=== PATIENT | female | born 1975 | race Hispanic/Latino ===

== ENCOUNTER 2018-08-13 05:35 | Emergency (ER) | payer OTHER ==
[2018-08-13 05:52] VITALS: BMI 23.0
[2018-08-13] MEDS ORDERED: Sodium Chloride 0.9% 1,000 ML IV STA (06:00)
--- NOTE | 2018-08-13 06:14 | ED PDOC ---
HPI: Abdomen Time Seen by Provider: 08/13/18 05:40 Chief Complaint (Nursing): Abdominal Pain Chief Complaint (Provider): Abdominal Pain History Per: Patient History/Exam Limitations: no limitations Onset/Duration Of Symptoms: Days (last night ) Current Symptoms Are (Timing): Still Present Location Of Pain/Discomfort: Other (generalized) Associated Symptoms: Nausea, Vomiting, Diarrhea. denies: Fever Additional Complaint(s): 42 year old female no significant past medical history presents to the ED with generalized abdominal pain associated nausea, vomiting and diarrhea since last night. Patient reports today is the first day of her period. She is also pale and weak, but denies fever or any other complaints. Patient did not eat anything out of the ordinary. PMD: Dr. Alexander Past Medical History Reviewed: Historical Data, Nursing Documentation, Vital Signs Vital Signs: Last Vital Signs Temp 97.5 F L 08/13/18 05:53 Pulse 66 08/13/18 05:53 Resp 18 08/13/18 05:53 BP 139/70 08/13/18 05:53 Pulse Ox 100 08/13/18 05:53 - Medical History PMH: No Chronic Diseases - Family History Family History: States: Unknown Family Hx - Home Medications Home Medications: Ambulatory Orders Medication Instructions Recorded Escitalopram [Lexapro] 15 mg PO DAILY 08/23/15 Oseltamivir Phosphate [Tamiflu] 75 mg PO BID #10 capsule 08/23/15 - Allergies Allergies/Adverse Reactions: Allergies Allergy/AdvReac Type Severity Reaction Status Date / Time No Known Allergies Allergy Verified 08/13/18 05:52 Review of Systems ROS Statement: Except As Marked, All Systems Reviewed And Found Negative Constitutional: Positive for: Weakness. Negative for: Fever Gastrointestinal: Positive for: Nausea, Vomiting, Abdominal Pain, Diarrhea Skin: Positive for: Other (pale) Physical Exam - Reviewed Nursing Documentation Reviewed: Yes Vital Signs Reviewed: Yes - Physical Exam Appears: Positive for: Non-toxic, No Acute Distress Head Exam: Positive for: ATRAUMATIC, NORMOCEPHALIC Skin: Positive for: Pallor Eye Exam: Positive for: Normal appearance, EOMI, PERRL Neck: Positive for: Normal Cardiovascular/Chest: Positive for: Regular Rate, Rhythm. Negative for: Murmur Respiratory: Positive for: Normal Breath Sounds. Negative for: Respiratory Dist ress Gastrointestinal/Abdominal: Positive for: Normal Exam, Soft. Negative for: Tenderness Extremity: Positive for: Normal ROM (upper and lower). Negative for: Pedal Edema, Deformity Neurological/Psych: Positive for: Awake, Alert, Oriented (x3) - Laboratory Results Result Diagrams: 08/13/18 06:17 08/13/18 06:17 - ECG O2 Sat by Pulse Oximetry: 100 (RA) Pulse Ox Interpretation: Normal Medical Decision Making Medical Decision Making: Time: 0600 Plan: --CMP --Lipase --CBC --IV fluids --Pepcid 20 mg IVP --Zofran 4 mg IV Time: 0700 --Patient signed out to Dr. Fuentes by this provider, pending labs. Scribe Attestation: Documented by Renee Tirado, acting as a scribe for Augusto Jacobs MD. Provider Scribe Attestation: All medical record entries made by the Scribe were at my direction and personally dictated by me. I have reviewed the chart and agree that the record accurately reflects my personal performance of the history, physical exam, medical decision making, and the department course for this patient. I have also personally directed, reviewed, and agree with the discharge instructions and disposition. Disposition - Clinical Impression Clinical Impression: Abdominal discomfort - Patient ED Disposition Is Patient to be Admitted: Transfer of Care - Disposition Disposition: Transfer of Care Disposition Time: 06:51 Condition: STABLE Forms: [employer] ([place])
[2018-08-13 06:22] LABS: BASO % 0.5 % (0.0-2.0); EOS # 0.1 K/uL (0.0-0.7); EOS % 0.9 % (0.0-4.0); HEMOGLOBIN 11.8 g/dL (12.0-16.0); LYMPH # 1.3 K/uL (1.0-4.3); LYMPH % 16.5 % (20.0-40.0); MEAN CELL VOLUME 85.9 fl (81.0-99.0); MEAN CORPUSCULAR HEMOGLOBIN 28.6 pg (27.0-31.0); MEAN CORPUSCULAR HGB CONC 33.3 g/dL (33.0-37.0); MONO # 0.6 K/uL (0.0-0.8); MONO % 7.2 % (0.0-10.0); NEUT % 74.9 % (50.0-75.0); RBC 4.11 Mil/uL (3.80-5.20); RED CELL DISTRIBUTION WIDTH 14.5 % (11.5-14.5)
[2018-08-13 06:28] LABS: ALB/GLOB RATIO 1.5 (1.0-2.1); ALBUMIN 4.2 g/dL (3.5-5.0); ALT/SGPT 37 U/L (9-52); AST/SGOT 32 U/L (14-36); BLOOD UREA NITROGEN 17 mg/dl (7-17); CALCIUM 8.8 mg/dL (8.4-10.2); GFR NON-AFRICAN AMERICAN > 60; LIPASE 112 U/L (23-300)
--- NOTE | 2018-08-13 07:10 | ED PDOC ---
- Laboratory Results Result Diagrams: 08/13/18 06:17 08/13/18 06:17 Lab Results: Total Bilirubin 0.2 mg/dl (0.2-1.3) 08/13/18 06:17 AST 32 U/L (14-36) 08/13/18 06:17 ALT 37 U/L (9-52) 08/13/18 06:17 Alkaline Phosphatase 55 U/L (38-126) 08/13/18 06:17 Total Protein 6.9 G/DL (6.3-8.2) 08/13/18 06:17 Albumin 4.2 g/dL (3.5-5.0) 08/13/18 06:17 Globulin 2.7 gm/dL (2.2-3.9) 08/13/18 06:17 Albumin/Globulin Ratio 1.5 (1.0-2.1) 08/13/18 06:17 Lipase 112 U/L (23-300) 08/13/18 06:17 - ECG O2 Sat by Pulse Oximetry: 100 (RA) - Progress Condition: Re-examined, Improved Medical Decision Making Medical Decision Making: Time: 0700 --Patient is endorsed to provider by Dr. Jacobs, pending lab results and final disposition. Time: 0750 --At bedside, patient reports feeling better after morphine, Pepcid, and Zofran. Patient describes abdominal pain as severe which caused vomiting and diarrhea. 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 On exam, patient is AxO, in no acute distress, and has a soft abdomen with good bowel sounds. Due to similar symptoms in the past, will order an US transvaginal for further evaluation. Time: 1038 --US transvaginal FINDINGS: UTERUS: Measures 7.5 x 4.5 x 6.0 cm. Normal in size and appearance. No fibroid or other mass lesion seen. ENDOMETRIUM: Measures 3.0 mm in diameter. Unremarkable. CERVIX: No cervical abnormality identified. RIGHT OVARY: Measures 4.1 x 1.7 x 1.5 cm. No solid mass. Normal flow. A few scattered follicles identified. LEFT OVARY: Measures 4.8 x 0.9 x 1.5 cm. No solid mass. Normal flow. A few scattered follicles identified. FREE FLUID: No significant free fluid noted. OTHER FINDINGS: Trace left adnexal fluid identified of uncertain origin. IMPRESSION: Trace left adnexal fluid identified of uncertain origin. Consider possible left ovarian cyst rupture. No suspicious collections throughout the exam nevertheless. Unremarkable uterus cervix and endometrium. Small follicles identified in both ovaries. No signal interval change compared to prior ultrasound 08/13/2015. Scribe Attestation: Documented by Betzaida Noel, acting as a scribe for Tashia Fuentes MD. Provider Scribe Attestation: All medical record entries made by the Scribe were at my direction and personally dictated by me. I have reviewed the chart and agree that the record accurately reflects my personal performance of the history, physical exam, medical decision making, and the department course for this patient. I have also personally directed, reviewed, and agree with the discharge instructions and disposition. Disposition Doctor Will See Patient In The: Office Counseled Patient/Family Regarding: Diagnosis, Need For Followup, Rx Given - Clinical Impression Clinical Impression: Pelvic pain, Left pelvic adnexal fluid collection - POA Present On Arrival: None - Disposition Disposition: Routine/Home Disposition Time: 11:40 Condition: STABLE Prescriptions: Naproxen [Naprosyn] 500 mg PO BID PRN #20 tablet PRN Reason: Pain, Moderate (4-7) Ondansetron [Zofran] 4 mg PO Q8H #9 tab Instructions: Ovarian Cysts Forms: [facility] ([place]), [facility] ED School/Work Excuse
--- NOTE | 2018-08-13 10:42 | US ---
Date of service: 08/13/2018 HISTORY: severe pelvic pain COMPARISON: None available. TECHNIQUE: Transvaginal pelvic ultrasound was performed with longitudinal and transverse images submitted for interpretation. FINDINGS: UTERUS: Measures 7.5 x 4.5 x 6.0 cm. Normal in size and appearance. No fibroid or other mass lesion seen. ENDOMETRIUM: Measures 3.0 mm in diameter. Unremarkable. CERVIX: No cervical abnormality identified. RIGHT OVARY: Measures 4.1 x 1.7 x 1.5 cm. No solid mass. Normal flow. A few scattered follicles identified. LEFT OVARY: Measures 4.8 x 0.9 x 1.5 cm. No solid mass. Normal flow. A few scattered follicles identified. FREE FLUID: No significant free fluid noted. OTHER FINDINGS: Trace left adnexal fluid identified of uncertain origin. IMPRESSION: Trace left adnexal fluid identified of uncertain origin. Consider possible left ovarian cyst rupture. No suspicious collections throughout the exam nevertheless. Unremarkable uterus cervix and endometrium. Small follicles identified in both ovaries. No signal interval change compared to prior ultrasound 08/13/2015.
[2018-08-13 11:41] VITALS: BP 103/63; PULSE 63; RESP 16; TEMP 98.4
[2018-08-13 12:51] VITALS: O2SAT 98
== END 2018-08-13 12:30 | disposition home or self-care (01) ==
LOC: H.ER 05:35
DX: R10.2 Pelvic and perineal pain (principal)
CPT/HCPCS: 76830; 80053; 83690; 85025; 96361; 96374; 96375; 99284; J2270; J2405; J7030